=== PATIENT | male | born 1975 | race Caucasian/White ===

== ENCOUNTER 2023-11-13 15:16 | Emergency (ER) | payer OTHER, SELFPAY ==
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
[2023-11-13 15:38] VITALS: BP 190/80; PULSE 117; O2SAT 99
[2023-11-13 15:43] VITALS: BP 143/79; PULSE 101; RESP 20; TEMP 36.6; O2SAT 100; BMI 52.5
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
[2023-11-13 17:52] VITALS: BP 143/79; PULSE 101; RESP 20; TEMP 36.6; O2SAT 100
== END 2023-11-13 17:52 | disposition home or self-care (01) ==
PROVIDERS: Emergency Provider Internal Medicine; PCP Nurse Practitioner Family
DX: Z04.1 Encounter for examination and observation following transport accident (principal)
CPT/HCPCS: 70450; 71045; 72125; 99283; 99284